=== PATIENT | male | born 1990 | race Caucasian/White ===

== ENCOUNTER 2020-12-30 06:05 | Emergency (ER) | payer SELFPAY ==
[~2020-12-30] VITALS: Ht 180.3 cm; Wt 86.0 kg
[2020-12-30] MEDS ORDERED: LORAZEPAM 2MG/ML CPJ IM ONE (06:30)
[2020-12-30] MEDS ORDERED: SODIUM CHLORIDE 0.9% 1,000 ML IV ONE ×3 (06:30→11:00)
[2020-12-30] MEDS ORDERED: OLANZAPINE 10 MG/VIAL IM ONE (06:30)
[2020-12-30 07:06] LABS: BASOPHILS % 0.5 % (0.0-2.0); EOSINOPHILS % 0.3 % (0.0-5.0); HEMATOCRIT. 41.7 % (42.0-52.0); HEMOGLOBIN. 14.5 g/dL (14.0-18.0); LYMPHOCYTES % 15.8 % (20.0-50.0); MEAN CORPUSCULAR HEMOGLOBIN 29.9 pg (28.0-32.0); MEAN PLATELET VOLUME 7.7 fl (7.4-10.4); MONOCYTES % 12.2 % (2.0-8.0); NEUTROPHILS % 71.2 % (40.0-76.0); PLATELET 194 x1000/uL (130-400); RED BLOOD CELL COUNT 4.85 mill/uL (4.7-6.1); RED CELL DISTRIBUTION WIDTH 12.9 % (11.6-14.6)
[2020-12-30 07:10] LABS: CLARITY URINE CLEAR (CLEAR); COLOR URINE YELLOW (YELLOW); KETONES URINE 2+ (NEGATIVE); LEUKOCYTE ESTERASE URINE NEGATIVE (NEGATIVE); NITRITE URINE NEGATIVE (NEGATIVE); OCCULT BLOOD URINE NEGATIVE (NEGATIVE); PROTEIN URINE 2+ (NEGATIVE); SPECIFIC GRAVITY URINE 1.035 (1.005-1.030)
[2020-12-30 07:15] LABS: CHLORIDE 108 mEq/L (98-107)
[2020-12-30 07:18] LABS: ETHANOL BLOOD < 10 mg/dL
[2020-12-30 07:31] LABS: *AMPHETAMINES SCREEN URINE PRESUMTIVE POSITIVE (NEGATIVE); *BARBITURATES SCREEN URINE NEGATIVE (NEGATIVE); *BENZODIAZEPINES SCREEN URINE NEGATIVE (NEGATIVE)
[2020-12-30 07:33] LABS: *COCAINE SCREEN URINE NEGATIVE (NEGATIVE); CANNABINOID URINE SCREEN NEGATIVE (NEGATIVE); METHADONE URINE SCREEN NEGATIVE (NEGATIVE); OPIATES URINE SCREEN NEGATIVE (NEGATIVE); PHENCYCLIDINE URINE SCREEN NEGATIVE (NEGATIVE)
[2020-12-30 08:51] LABS: CREATINE KINASE 1821 IU/L (39-308)
[2020-12-30 15:56] VITALS: BP 128/68
== END 2020-12-30 15:57 | disposition home or self-care (01) ==
LOC: ER 06:05
DX: G93.40 Encephalopathy, unspecified (principal); E86.0 Dehydration
CPT/HCPCS: 36415; 80053; 80305; 80307; 80320; 80329; 81003; 82550; 82962; 85025; 93005; 96360; 96361; 96372; 99285; J2060; J3490; J7030; Z7610; G0480